=== PATIENT | male | born 1990 | race Caucasian/White ===

== ENCOUNTER 2021-04-03 20:10 | Emergency (ER) | payer OTHER ==
[~2021-04-03 20:10] MED LIST: CARAFATE1 GM PO; ONDANSETRON ODT4 MG SL; PROTONIX 40MG T40 MG PO
== END 2021-04-03 21:00 | disposition home or self-care (01) ==
LOC: FER 20:10
DX: Z53.21 Procedure and treatment not carried out due to patient leaving prior to being seen by health care provider (principal)